=== PATIENT | female | born 1960 | race Caucasian/White ===

== ENCOUNTER 2020-02-02 13:30 | Emergency (ER) | payer OTHER ==
[~2020-02-02] VITALS: Ht 162.6 cm; Wt 89.0 kg
--- NOTE | 2020-02-02 13:35 | NUR ---
59 YEAR OLD FEMALE C/O FEVER AND SORE THROAT X 2 DAYS SENT BY PMD FOR SPO2 94%. ALERT AND ORIENTED X4, BREATHING EVEN AND UNLABORED. SKIN WARM TO TOUCH AND INTACT. WAITING TO BE SEEN BY
--- NOTE | 2020-02-02 14:13 | NUR ---
PROJECT COORDINATOR AT BEDSIDE
[2020-02-02 14:25] LABS: BASOPHILS % (AUTO) 0.4 % (0.0-2.0); EOSINOPHILS % (AUTO) 0.2 % (0.0-6.0); HEMATOCRIT 40 % (33-45); HEMOGLOBIN 14.1 g/dL (11.5-14.8); LYMPHOCYTES # (AUTO) 0.6 /CMM (0.8-4.8); LYMPHOCYTES % (AUTO) 5.8 % (20.0-44.0); MEAN CORPUSCULAR HGB CONC 35 g/dl (31.0-36.0); MEAN CORPUSCULAR VOLUME 91 fL (82-100); MONOCYTES # (AUTO) 0.5 /CMM (0.1-1.30); NEUTROPHILS # (AUTO) 9.2 /CMM (1.8-8.9); NEUTROPHILS % (AUTO) 88.6 % (43.0-81.0); PLATELET COUNT (AUTO) 221 /CMM (150-450); RED BLOOD CELL COUNT(AUTO) 4.44 MIL/uL (4.0-5.2); WHITE BLOOD COUNT (AUTO) 10.4 K/uL (4.3-11.0)
[2020-02-02] MEDS ORDERED: IV NS 0.9% 1,000 ML BAG IV ONE (14:30)
[2020-02-02 14:35] LABS: CALCIUM, SERUM 8.7 mg/dL (8.5-10.1)
[2020-02-02 14:37] LABS: POTASSIUM 2.5 mmol/L (3.5-5.1)
[2020-02-02] MEDS ORDERED: POTASSIUM CHLORIDE 20 MEQ TAB.PRT.SR PO ONE ×2 (14:53→15:00)
[2020-02-02] MEDS ORDERED: POTASSIUM CL. PREMIX PERIPHER. 50 ML ONE (14:53)
[2020-02-02] MEDS ORDERED: POTASSIUM CL. PREMIX PERIPHER. 50 ML IV ONE (15:00)
[2020-02-02] MEDS ORDERED: AZITHROMYCIN 500 MG in IV D5W 250 ML IV ONE (15:30)
--- NOTE | 2020-02-02 15:30 | NUR ---
ADDENDUM: Intravenous End Time Documentation: Zithromax 500 mg IVPB: start time: 1530 ; end time: 1630 : IV site: [facility] PIV # 20 Port # 1
[2020-02-02 16:42] VITALS: BP 145/80
--- NOTE | 2020-02-02 16:42 | NUR ---
Patient discharged to home in stable condition. Written and verbal after care instructions given. Patient verbalizes understanding of instruction. IV removed. Catheter intact and site benign. Pressure and 4x4 applied to site. No bleeding noted.
== END 2020-02-02 16:45 | disposition home or self-care (01) ==
LOC: ER 13:33
DX: J02.0 Streptococcal pharyngitis (principal); E87.6 Hypokalemia; E86.0 Dehydration; Z88.0 Allergy status to penicillin
CPT/HCPCS: 36415; 71045; 80048; 83735; 85025; 87040 ×2; 93005; 96361; 96365; 96368; 99285; J0456; J3480; J7030; J7040; J7060